=== PATIENT | female | born 1985 | race Caucasian/White ===

== ENCOUNTER 2016-08-11 21:30 | Emergency (ER) | payer SELFPAY ==
[~2016-08-11] VITALS: Ht 152.4 cm; Wt 56.8 kg
[~2016-08-11 21:30] MED LIST: BACTRIM DS 8001 TA1 PO; NORCO 325 MG-51 TA1 PO
[2016-08-11] MEDS ORDERED: AMOXICILLIN 50500 MG PO (22:06)
[2016-08-11 22:41] VITALS: BP 127/73
== END 2016-08-11 22:41 | disposition home or self-care (01) ==
LOC: ED 21:30
DX: K05.219 Aggressive periodontitis, localized, unspecified severity (principal); K03.81 Cracked tooth; K08.89 Other specified disorders of teeth and supporting structures; F17.210 Nicotine dependence, cigarettes, uncomplicated

== ENCOUNTER 2019-10-28 19:42 | Emergency (ER) | payer SELFPAY ==
[~2019-10-28] VITALS: Ht 152.4 cm; Wt 56.9 kg
[~2019-10-28 19:42] MED LIST changes: +AMOXICILLIN 50500 MG PO
[2019-10-28] MEDS ORDERED: BACTRIM DS TAB1 EACH PO (21:02)
[2019-10-28 21:22] VITALS: BP 114/70
== END 2019-10-28 21:30 | disposition home or self-care (01) ==
LOC: ED 19:42
DX: S61.411A Laceration without foreign body of right hand, initial encounter (principal); F17.200 Nicotine dependence, unspecified, uncomplicated; W18.30XA Fall on same level, unspecified, initial encounter; Y93.89 Activity, other specified; Y92.009 Unspecified place in unspecified non-institutional (private) residence as the place of occurrence of the external cause
CPT/HCPCS: 90715